=== PATIENT | female | born 1995 | race African-American/Black ===

== ENCOUNTER 2017-03-12 18:55 | Emergency (ER) ==
[2017-03-12 20:57] VITALS: BP 141/67
== END 2017-03-12 23:26 | disposition left against medical advice (07) ==
LOC: ER 18:55
DX: Z53.9 Procedure and treatment not carried out, unspecified reason (principal); R10.9 Unspecified abdominal pain

== ENCOUNTER 2017-03-13 13:42 | Emergency (ER) | payer OTHER ==
--- NOTE | 2017-03-13 14:19 | ER Document Report ---
ED Medical Screen (RME) - General Chief Complaint: Abdominal Pain Stated Complaint: ABDOMINAL PAIN/URINARY PROBLEMS Notes: 21-year-old with lower abdomen pelvic pressure for one week. Hematuria first noted 4 days ago. Last menstrual period 01/07/2017. I have greeted and performed a rapid initial assessment of this patient. A comprehensive ED assessment and evaluation of the patient, analysis of test results and completion of the medical decision making process will be conducted by additional ED providers. TRAVEL OUTSIDE OF THE [place] IN LAST 30 DAYS: No - Related Data Allergies/Adverse Reactions: No Known Allergies Allergy (Verified 03/13/17 14:16) Past Medical History Renal/ Medical History: Denies: Hx Peritoneal Dialysis Physical Exam - Vital signs Vitals: Temp Pulse Resp BP Pulse Ox 99.6 F 81 16 128/70 H 99 03/13/17 14:07 03/13/17 14:07 03/13/17 14:07 03/13/17 14:07 03/13/17 14:07 Course - Vital Signs Vital signs: Temp Pulse Resp BP Pulse Ox 99.6 F 81 16 128/70 H 99 03/13/17 14:07 03/13/17 14:07 03/13/17 14:07 03/13/17 14:07 03/13/17 14:07
[2017-03-13 15:00] LABS: ABSOLUTE EOSINOPHILS # (AUTO) 0.1 10^3/uL (0.0-0.6); ABSOLUTE LYMPHOCYTES (AUTO) 1.9 10^3/uL (0.5-4.7); ABSOLUTE MONOCYTES (AUTO) 0.4 10^3/uL (0.1-1.4); BASOPHILS % (AUTO) 0.7 % (0-2); EOSINOPHILS % (AUTO) 1.8 % (0-6); HEMATOCRIT 40.2 % (36.0-47.0); HEMOGLOBIN 13.8 g/dL (12.0-15.5); HGB HCT DIFFERENCE 1.2; LYMPHOCYTES % (AUTO) 29.2 % (13-45); MEAN CORPUSCULAR HEMOGLOBIN 30.3 pg (27.0-33.4); MEAN CORPUSCULAR HGB CONC 34.4 g/dL (32.0-36.0); MEAN CORPUSCULAR VOLUME 88 fl (80-97); MONOCYTES % (AUTO) 6.1 % (3-13); RED BLOOD COUNT 4.57 10^6/uL (3.72-5.28); RED CELL DISTRIBUTION WIDTH 12.2 % (11.5-14.0); SEGMENTED NEUTROPHILS % (AUTO) 62.2 % (42-78); WHITE BLOOD COUNT 6.5 10^3/uL (4.0-10.5)
--- NOTE | 2017-03-13 15:23 | ER Document Report ---
ED General - General Chief Complaint: Abdominal Pain Stated Complaint: ABDOMINAL PAIN/URINARY PROBLEMS Time seen by provider: 15:21 Mode of Arrival: Ambulatory Information source: Patient Notes: This is a 21-year-old female 1 para 0 , 1 TOP, last normal menstrual period 01/07/2017. Patient states that she had an IUD which was taken out last February and her menstrual cycle has been irregular in the last 4 months. Patient states that she had some vaginal bleeding for the past 4 days and complains of some lower abdominal cramping. TRAVEL OUTSIDE OF THE [place] IN LAST 30 DAYS: No - HPI Onset: Just prior to arrival Onset/Duration: Gradual Quality of pain: No pain Severity: None Pain Level: Denies Associated symptoms: denies: Chills, Fever, Shortness of breath Exacerbated by: Denies Relieved by: Denies Similar symptoms previously: No Recently seen / treated by doctor: No - Related Data Allergies/Adverse Reactions: No Known Allergies Allergy (Verified 03/13/17 14:16) Past Medical History - General Information source: Patient - Social History Smoking Status: Never Smoker Cigarette use (# per day): No Chew tobacco use (# tins/day): No Frequency of alcohol use: None Drug Abuse: None Lives with: Family Family History: Reviewed & Not Pertinent Patient has suicidal ideation: No Patient has homicidal ideation: No - Medical History Medical History: Negative Renal/ Medical History: Denies: Hx Peritoneal Dialysis Surgical Hx: Negative Review of Systems - Review of Systems Constitutional: denies: Chills, Fever EENT: No symptoms reported Cardiovascular: No symptoms reported Respiratory: No symptoms reported Gastrointestinal: No symptoms reported Genitourinary: See HPI Female Genitourinary: See HPI Musculoskeletal: No symptoms reported Skin: No symptoms reported Hematologic/Lymphatic: No symptoms reported Neurological/Psychological: No symptoms reported Physical Exam - Vital signs Vitals: Temp Pulse Resp BP Pulse Ox 99.6 F 81 16 128/70 H 99 03/13/17 14:07 03/13/17 14:07 03/13/17 14:07 03/13/17 14:07 03/13/17 14:07 Notes: Physical exam: GENERAL: 21-year-old female, alert and oriented 3, no acute distress HEAD: Atraumatic, normocephalic. EYES: Pupils equal round and reactive to light, extraocular movements intact, sclera anicteric, conjunctiva are normal. ENT: TMs normal, nares patent, oropharynx clear without exudates. Moist mucous membranes. NECK: Normal range of motion, supple without lymphadenopathy or JVD. LUNGS: Breath sounds clear to auscultation bilaterally and equal. No wheezes rales or rhonchi. HEART: Regular rate and rhythm without murmurs, rubs or gallops. ABDOMEN: Soft, normoactive bowel sounds. No tenderness to palpation. No guarding, no rebound. No masses appreciated. Vaginal: Deferred EXTREMITIES: Normal range of motion, no pitting or edema. No clubbing or cyanosis. NEUROLOGICAL: Cranial nerves II through XII grossly intact. Normal speech, normal gait. PSYCH: Normal mood, normal affect. SKIN: Warm, Dry, normal turgor, no rashes or lesions noted. Course - Re-evaluation Re-evalutation: 03/13/17 17:59 Note: The patient had subsequently brought up that she was seen by the program checker yesterday and had a Pap smear that was reported as negative. She is scheduled to have an outpatient ultrasound in 2 weeks but the mother is demanding that it's done today. The patient is quite comfortable at this time. An ultrasound was performed in the results are favorable. I will give the patient a copy of the ultrasound report as well as the ultrasound on disc and the labs for her to follow-up with her program checker. - Vital Signs Vital signs: Temp Pulse Resp BP Pulse Ox 99.3 F 83 20 122/80 99 03/13/17 18:25 03/13/17 18:25 03/13/17 18:25 03/13/17 18:25 03/13/17 18:25 - Laboratory Result Diagrams: 03/13/17 14:30 Laboratory results interpreted by me: 03/13/17 14:30 Urine Ascorbic Acid 40 H - Diagnostic Test Radiology reviewed: Image reviewed, Reports reviewed - Normal transvaginal ultrasound Discharge - Discharge Clinical Impression: vaginal bleeding Condition: Stable Disposition: HOME, SELF-CARE Additional Instructions: The ultrasound of the uterus looked quite good today. Please bring a copy of the ultrasound report as well as the ultrasound study itself on disc (which we have given you) to your appointment with your OB doctor at [facility]. Also, bring a copy of today's labs with you when you go to that appointment.
[2017-03-13 15:44] LABS: APPEARANCE,URINE CLEAR; BILIRUBIN,URINE NEGATIVE (NEGATIVE); GLUCOSE, URINE NEGATIVE (NEGATIVE); KETONES,URINE NEGATIVE (NEGATIVE); LEUKOCYTE ESTERASE,URINE NEGATIVE (NEGATIVE); NITRITE,URINE NEGATIVE (NEGATIVE); PROTEIN,URINE NEGATIVE (NEGATIVE); URINE SPECIFIC GRAVITY 1.021; UROBILINOGEN,URINE NEGATIVE mg/dL (<2.0)
[2017-03-13 18:45] VITALS: BP 122/80
== END 2017-03-13 18:25 | disposition home or self-care (01) ==
LOC: ER 13:42
DX: N93.9 Abnormal uterine and vaginal bleeding, unspecified (principal); N92.6 Irregular menstruation, unspecified; R10.30 Lower abdominal pain, unspecified
CPT/HCPCS: 36415; 76830; 81001; 84702; 85025; 93976; 99284